=== PATIENT | male | born 1990 | race Caucasian/White ===

== ENCOUNTER → 2017-07-14 | Outpatient (CLI) | payer OTHER ==
[~2017-07-14] MED LIST: AMOXIL500 MG PO; ANAPROX DS550 MG PO; FLEXERIL10 MG PO; LAMICTAL150 MG PO; MOTRIN600 MG PO; MOTRIN800 MG PO; NORCO 325 MG-51 TAB PO; TRAMADOL HCL50 MG PO; VICODIN 5/500 505 MG PO; VOLTAREN50 M1 PO
== END | disposition home or self-care (01) ==
LOC: RAD 12:01
DX: M25.552 Pain in left hip (principal); M25.551 Pain in right hip; M54.5 Low back pain

== ENCOUNTER → 2017-07-28 | Outpatient (CLI) | payer OTHER | LOC: MRI 08:00 | DX: M51.25 Other intervertebral disc displacement, thoracolumbar region (principal); R20.2 Paresthesia of skin ==

== ENCOUNTER → 2021-02-28 | Outpatient (CLI) | payer OTHER | END | disposition home or self-care (01) | LOC: COVID19 15:45 | PROVIDERS: ATTEND Internal Medicine | DX: Z20.822 Contact with and (suspected) exposure to COVID-19 (principal) ==

== ENCOUNTER → 2023-04-11 | Outpatient (CLI) | payer OTHER ==
[2023-04-11 12:45] LABS: MEAN CELL VOLUME 89.6 fl (80.0-94.0); MEAN CORPUSCULAR HGB 28.7 pg (27.0-31.0); MEAN PLATELET VOLUME 11.4 fl (9.6-12.3); RED BLOOD COUNT 4.91 10*6/uL (4.50-5.90); WHITE BLOOD COUNT 4.9 10*3/uL (4.8-10.8)
[2023-04-11 13:32] LABS: ALKALINE PHOSPHATASE 75 U/L (46-116); BUN 11 mg/dl (9-23); CHLORIDE 107 mmol/L (98-107); CHOLESTEROL 114 mg/dL (<200); FREE T4 1.05 ng/dl (0.89-1.76); LDL CHOLESTEROL 64 mg/dL (9-159); POTASSIUM 4.4 mmol/L (3.4-5.1); SGPT/ALT 30 U/L (5-49); TOTAL PROTEIN 7.5 gm/dL (6.0-8.0); TRIGLYCERIDES 55 mg/dl (<150)
== END | disposition home or self-care (01) ==
LOC: LAB 12:23
PROVIDERS: ATTEND Family Medicine
DX: E78.00 Pure hypercholesterolemia, unspecified (principal); R53.83 Other fatigue; R35.89 Other polyuria; R63.2 Polyphagia; R63.1 Polydipsia

== ENCOUNTER → 2023-04-21 | Outpatient (CLI) | payer OTHER | END | disposition home or self-care (01) | LOC: LAB 12:08 | PROVIDERS: ATTEND Family Medicine | DX: M26.629 Arthralgia of temporomandibular joint, unspecified side (principal); M79.10 Myalgia, unspecified site; R53.83 Other fatigue; M25.50 Pain in unspecified joint ==